=== PATIENT | female | born 1995 | race Caucasian/White ===

== ENCOUNTER 2017-03-14 19:04 | Emergency (ER) | payer OTHER ==
[2017-03-14] MEDS ORDERED: ACETAMINOPHEN TAB 500 MG TAB PO STA (19:41)
--- NOTE | 2017-03-14 19:53 | XR ---
EXAMINATION TYPE: XR chest 2V DATE OF EXAM: 03/14/2017 COMPARISON: 03/04/2012 HISTORY: Cough and fever TECHNIQUE: Frontal and lateral views of the chest are obtained. FINDINGS: Heart and mediastinum are normal. Lungs are clear. Diaphragm is normal. Bony thorax appear s normal. IMPRESSION: Normal chest. No change.
--- NOTE | 2017-03-14 20:05 | ED ---
General Adult HPI - General Chief complaint: Upper Respiratory Infection Stated complaint: FLU SYMPTOMS Time Seen by Provider: 03/14/17 19:30 Source: patient, family, RN notes reviewed Mode of arrival: ambulatory Limitations: no limitations - History of Present Illness Initial comments: 21-year-old female presents for cough cold fever chills. Patient has been sick for the past 2 days. She went to they diagnosed her with fluids without that aren't as well as for concern for UTI. She states that she still is not feeling better so she came in to be seen today. She is up and on the medications for more than 2 doses. There is been no nausea or vomiting. She states just feels very weak and tired. She states she took Motrin today but no Tylenol. Patient denies any recent shortness of breath, chest pain, back pain, abdominal pain, nausea vomiting, numbness or tingling, dysuria or hematuria, constipation or diarrhea, headaches or visual changes, or any other current symptoms. - Related Data Home Medications Medication Instructions Recorded Confirmed Dextroamphetamine/Amphetamine 20 mg PO BID 03/14/17 03/14/17 [Adderall] LORazepam [Ativan] 1 mg PO HS PRN 03/14/17 03/14/17 Oseltamivir [Tamiflu] 75 mg PO Q12HR 03/14/17 03/14/17 Allergies Allergy/AdvReac Type Severity Reaction Status Date / Time Sulfa (Sulfonamide Allergy Rash/Hives Verified 03/14/17 19:37 Antibiotics) Review of Systems ROS Statement: Those systems with pertinent positive or pertinent negative responses have been documented in the HPI. ROS Other: All systems not noted in ROS Statement are negative. Past Medical History Additional Past Medical History / Comment(s): UTI History of Any Multi-Drug Resistant Organisms: None Reported Past Surgical History: No Surgical Hx Reported Past Psychological History: Anxiety Smoking Status: Never smoker Past Alcohol Use History: None Reported Past Drug Use History: None Reported General Exam - General Exam Comments Initial Comments: General exam: Alert, active, comfortable in no apparent distress Head: Normocephalic Eyes: Normal reaction of pupils, equal size, normal range of extraocular motion Ears: normal external ear canals, pink tympanic membranes with normal cone of light Nose: clear with pink turbinates Throat: no erythema or exudates with normal sized tonsils Neck: no masses, no nuchal rigidity Chest: no chest wall deformity Lungs: equal air entry with no crackles or wheeze CVS: S1 and S2 normal with no audible mumurs, regular rhythm. Abdomen: no hepatosplenomegaly, normal bowel sounds, no guarding or rigidity Spine: no scoliosis or deformity Skin: no rashes Neurological: No focal deficits, tone is normal in all 4 extremities Limitations: no limitations Course Vital Signs 03/14/17 19:22 Temperature 101.7 F H Pulse Rate 108 H Respiratory 20 Rate Blood Pressure 124/73 O2 Sat by Pulse 97 Oximetry Medical Decision Making - Medical Decision Making 21-year-old female presents for cough and congestion.at this time patient chest x-ray was reviewed and lab results. She is positive for influenza. We discussed continuing the current regimen that she is on. We discussed return parameters and follow-up and all questions. The patient stated that she understood and all her questions have been answered. Patient will be discharged. - Lab Data Lab Results 03/14/17 Range/Units 20:00 Influenza Type A RNA Detected H (Not Detectd) Influenza Type B (PCR) Not Detected (Not Detectd) - Radiology Data Radiology results: report reviewed, image reviewed Disposition Clinical Impression: Influenza A Disposition: HOME SELF-CARE Condition: Stable Instructions: Influenza (ED) Additional Instructions: Please use medication as discussed. Please follow up with family doctor if symptoms have not improved over the next two days. Please return to the emergency room if your symptoms increase or worsen or for any other concerns. Referrals: Shorty Eden III, MD [STAFF PHYSICIAN] - 1-2 days Time of Disposition: 20:29
[2017-03-14 20:39] VITALS: BP 115/67; PULSE 64; RESP 18; TEMP 98.9
== END 2017-03-14 20:39 | disposition home or self-care (01) ==
LOC: EC 19:04
DX: J10.1 Influenza due to other identified influenza virus with other respiratory manifestations (principal); Z88.2 Allergy status to sulfonamides; Z79.899 Other long term (current) drug therapy
CPT/HCPCS: 71046; 87502; 99283

== ENCOUNTER 2017-09-30 20:30 | Emergency (ER) | payer OTHER ==
[2017-09-30 20:56] VITALS: RESP 20
[2017-09-30 21:28] LABS: HCT 38.6 % (34.0-46.0); HGB 13.3 gm/dL (11.4-16.0); MCH 31.2 pg (25.0-35.0); MCHC 34.3 g/dL (31.0-37.0); MCV 90.9 fL (80.0-100.0); Mean Platelet Volume 8.2; Platelet Count 148 k/uL (150-450); RBC 4.25 m/uL (3.80-5.40); RDW 12.4 % (11.5-15.5); WBC 13.5 k/uL (3.8-10.6)
[2017-09-30 21:39] LABS: ALT 29 U/L (9-52); AST 22 U/L (14-36); Albumin 3.9 g/dL (3.5-5.0); Alkaline Phosphatase 69 U/L (38-126); Anion Gap 12 mmol/L; Blood Urea Nitrogen 10 mg/dL (7-17); Calcium 8.7 mg/dL (8.4-10.2); Carbon Dioxide 23 mmol/L (22-30); Chloride 95 mmol/L (98-107); Glucose 105 mg/dL (74-99); Potassium 4.4 mmol/L (3.5-5.1); Sodium 130 mmol/L (137-145); Total Protein 6.7 g/dL (6.3-8.2)
[2017-09-30 21:50] LABS: Band Neutrophils % 10 %; Nucleated Red Blood Cells 0 /100 WBC (0-0)
[2017-09-30 21:51] LABS: Lymphocytes # (M) 0.81 k/uL (1.0-4.8); Monocytes # (M) 0.81 k/uL (0-1.0); Neutrophils % (M) 77 %; Plasma Cells # (M) 0.14 k/uL (0); Plasma Cells % 1 %; Total Cells Counted 100
[2017-09-30] MEDS ORDERED: CEFTRIAXONE IVP STA (23:06)
[2017-09-30 23:18] LABS: Appearance,Urine Clear (Clear); Bacteria,Urine Few /hpf; Bilirubin,Urine Negative (Negative); Blood,Urine Trace (Negative); Color,Urine Light Yellow; Glucose,Urine (UA) Negative (Negative); Ketones,Urine 2+ (Negative); Leukocyte Esterase,Urine Moderate (Negative); Mucus,Urine Rare /hpf; Nitrite,Urine Negative (Negative); PH, Urine 5.5 (5.0-8.0); Protein,Urine Trace (Negative); RBC,Urine 1 /hpf (0-5); Specific Gravity,Urine 1.005 (1.001-1.035); Squamous Epithelial Cell,Urine 1 /hpf (0-4); Urobilinogen,Urine <2.0 mg/dL (<2.0); WBC,Urine 17 /hpf (0-5)
--- NOTE | 2017-09-30 23:50 | XR ---
EXAMINATION TYPE: XR chest 2V DATE OF EXAM: 09/30/2017 COMPARISON: 03/14/2017 HISTORY: Chest pain TECHNIQUE: Frontal and lateral views of the chest are obtained. FINDINGS: Heart and mediastinum are normal. Lungs are clear. Diaphragm is normal. IMPRESSION: Normal chest. No change.
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
[2017-10-01] MEDS ORDERED: ACETAMINOPHEN TAB 500 MG TAB PO STA (01:01)
[2017-10-01 01:10] VITALS: BP 106/64; PULSE 99; TEMP 101.8
== END 2017-10-01 01:09 | disposition home or self-care (01) ==
LOC: EC 20:30
DX: N12 Tubulo-interstitial nephritis, not specified as acute or chronic (principal); N30.90 Cystitis, unspecified without hematuria; R51 Headache; F41.9 Anxiety disorder, unspecified; F32.9 Major depressive disorder, single episode, unspecified; Z79.899 Other long term (current) drug therapy; Z88.2 Allergy status to sulfonamides
CPT/HCPCS: 99283; 36415; 80053; 83605; 85025; 81001; 81025; 87040; 87086; 87077; 87186; 71046; J0696

== ENCOUNTER 2019-10-03 23:08 | Emergency (ER) | payer SELFPAY ==
--- NOTE | 2019-10-03 23:45 | XR ---
EXAMINATION TYPE: XR forearm LT DATE OF EXAM: 10/03/2019 COMPARISON: NONE HISTORY: Trauma. Hit hand on a tree. TECHNIQUE: 2 views FINDINGS: There is nondisplaced transverse fracture of the distal radius involving mainly the radial styloid process. There is no displacement. Distal ulna appears intact. The elbow joint appears anatom ic. IMPRESSION: Acute nondisplaced distal radius fracture.
--- NOTE | 2019-10-03 23:47 | XR ---
EXAMINATION TYPE: XR hand complete LT DATE OF EXAM: 10/03/2019 COMPARISON: NONE HISTORY: Trauma. Pain. TECHNIQUE: 3 views FINDINGS: There is nondisplaced transverse and longitudinal fracture of the distal radius. Fracture l ine extends to the radiocarpal joint. The carpal bones are intact. Metacarpals are intact. There is s oft tissue swelling on the dorsum of the hand and wrist. The fingers appear intact. IMPRESSION: Soft tissue swelling. Acute nondisplaced fracture distal radius with comminution.
--- NOTE | 2019-10-03 23:48 | XR ---
EXAMINATION TYPE: XR wrist complete LT DATE OF EXAM: 10/03/2019 COMPARISON: NONE HISTORY: Pain. Trauma. TECHNIQUE: 4 views FINDINGS: There is transverse and oblique fractures of the distal radius extending to the radiocarpal joint. The carpal bones are intact. Intercarpal joint spaces are normal. There is no dislocation. Me tacarpals are intact. Distal ulna appears normal. IMPRESSION: Acute comminuted intra-articular nondisplaced fracture distal radius.
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
[2019-10-04 00:22] VITALS: BP 110/78; PULSE 62; RESP 18; TEMP 98
== END 2019-10-04 00:25 | disposition home or self-care (01) ==
LOC: EC 23:08
DX: S52.572A Other intraarticular fracture of lower end of left radius, initial encounter for closed fracture (principal); F41.9 Anxiety disorder, unspecified; F32.9 Major depressive disorder, single episode, unspecified; Z88.2 Allergy status to sulfonamides; V47.5XXA Car driver injured in collision with fixed or stationary object in traffic accident, initial encounter; Y92.410 Unspecified street and highway as the place of occurrence of the external cause; Y93.89 Activity, other specified
CPT/HCPCS: 29105; 99283

== ENCOUNTER → 2022-01-03 | Outpatient (CLI) | payer BC ==
[2022-01-03 18:18] LABS: Basophils # (A) 0.04 X 10*3/uL (0.00-0.10); Basophils % (A) 0.4 %; Eosinophils # (A) 0.06 X 10*3/uL (0.04-0.35); Eosinophils % (A) 0.5 %; HCT 40.2 % (37.2-46.3); HGB 13.7 g/dL (12.0-15.0); Immature Grans, Automated 0.5 %; Lymphocytes # (A) 1.61 X 10*3/uL (0.90-5.00); Lymphocytes % (A) 14.7 %; MCH 31.9 pg (27.0-32.0); MCHC 34.1 g/dL (32.0-37.0); MCV 93.5 fL (80.0-97.0); Mean Platelet Volume 11.7 fL (9.5-12.2); Monocytes # (A) 0.77 X 10*3/uL (0.20-1.00); NRBC Per 100 WBC 0 /100 WBCS (0.0-0.0); Neutrophils # (A) 8.45 X 10*3/uL (1.80-7.70); Neutrophils % (A) 76.9 %; Platelet Count 251 X 10*3/uL (140-440); RDW 11.7 % (11.5-14.5); WBC 10.98 X 10*3/uL (4.50-10.00)
== END | disposition home or self-care (01) ==
LOC: LABPAT 12:31
PROVIDERS: ATTEND Obstetrics & Gynecology
DX: Z01.812 Encounter for preprocedural laboratory examination (principal); O02.1 Missed abortion
CPT/HCPCS: 36415; 85025

== ENCOUNTER → 2022-01-03 | Outpatient (CLI) | payer BC ==
--- NOTE | 2022-01-03 12:02 | US ---
EXAMINATION TYPE: Transabdominal DATE OF EXAM: 01/03/2022 11:29 AM COMPARISON: NONE CLINICAL HISTORY: O76 ABN OR ABSENT HEART TONE. EXAM PERFORMED: Transvaginal (TV) and Transabdominal (TA) EXAM MEASUREMENTS: GESTATIONAL AGE / DATING Dates by LMP: (10 weeks/6 days) EDC: 07/26/2022 Dates by Current Scan for: (9 weeks/2 days) EDC: 08/06/2022 MATERNAL ANATOMY Uterus: Subchorrionic hemorrhage visualized around entire gestational sac Right Ovary: 1.6 x 1.5 x 1.6 cm complex cystic mass, corpus luteum appearance. Left Ovary: Not visualized Post CDS / Adnexa: Free Fluid near Right ovary and posterior cul de sac. Presence of free fluid: Yes Presence of corpus luteal cyst: Yes Presence of subchorionic bleed: Yes GESTATION / SURVEY CRL: 2.6cm (9 weeks/3 days) MSD: 3.5 (9 weeks/0 days) Yolk Sac (normal less than 6mm): No Yolk sac visualized Heart Rate: No heart tone detected IUP: Demise Date of LMP: 10/19/2021 Office notified of results by technologist. IMPRESSION: 1. Clinical correlation for intrauterine demise. No heart tones identified at this time. 2. Subchorionic hemorrhage surrounds the gestational sac.
== END | disposition home or self-care (01) ==
LOC: RADUSWWP 10:52
PROVIDERS: ATTEND Obstetrics & Gynecology
DX: O76 Abnormality in fetal heart rate and rhythm complicating labor and delivery (principal); O20.8 Other hemorrhage in early pregnancy; Z3A.09 9 weeks gestation of pregnancy
CPT/HCPCS: 76801; 76817

== ENCOUNTER 2022-01-04 06:18 | Day surgery (SDC) | payer BC ==
[~2022-01-04 06:18] MED LIST: DEXAMETHASONE SOD PHOSPHATE 4 MG/ML 1 ML VIAL IV ONE; LACTATED RINGERS 1,000 ML IV SCH; MIDAZOLAM 2 MG/2 ML VIAL IV PRN; ONDANSETRON 4 MG/2 ML VIAL IVP ONE; Pre Op ABX Message 1 EACH MISC MISCELLANE ONE; SCOPOLAMINE 1 MG/72 HR PATCH TRANSDERM ONE
[2022-01-04 06:43] VITALS: RESP 16
[2022-01-04] MEDS ORDERED: HYDROmorphone 0.5 MG/0.5 ML SYRINGE IVP PRN (07:00)
[2022-01-04] MEDS ORDERED: MIDAZOLAM 2 MG/2 ML VIAL IVP ONE ×2 (07:03→07:10)
[2022-01-04] MEDS ORDERED: PHENYLEPHRINE-0.9% NACL SYG 1,000 MCG/10 ML SYRINGE ONE (07:28)
[2022-01-04] MEDS ORDERED: fentaNYL (PF) 50 MCG/ML 2 ML AMP ONE (07:28)
[2022-01-04] MEDS ORDERED: LIDOCAINE 2% INJ 20 MG/ML (2 ML VIAL) ONE (07:28)
[2022-01-04] MEDS ORDERED: PROPOFOL 10 MG/ML 20 ML VIAL IV ONE (07:28)
[2022-01-04] MEDS ORDERED: MIDAZOLAM 2 MG/2 ML VIAL ONE (07:28)
[2022-01-04] MEDS ORDERED: KETOROLAC 15 MG/ML 1 ML VIAL ONE (07:28)
--- NOTE | 2022-01-04 08:15 | P.OP ---
Date of Procedure: 01/04/22 Preoperative Diagnosis: Missed Postoperative Diagnosis: Missed Procedure(s) Performed: Suction dilatation and curettage Anesthesia: STEPHANE Surgeon: Sahara Arora Hand Mica Plate Layer #1: Loy Juarez Estimated Blood Loss (ml): 100 IV fluids (ml): 500 Urine output (ml): 50 Pathology: none sent Condition: stable Disposition: same day Indications for Procedure: 9 week, day 2 fetus without heart tones seen on ultrasound consistent with demise Operative Findings: On bimanual exam, the patient has approximately 9-week anteverted, mobile uterus with the cervix that is closed. There was a mdoerate amount of tissue obtained on the procedure. The patient is Rh positive. Description of Procedure: PROCEDURE: The patient was taken to the operating room where a general anesthetic was administered. She was then positioned in the dorsal lithotomy position and prepped and draped in the normal sterile fashion. Once the anesthetic was found to be adequate, a bimanual exam was performed under anesthetic. Next, a weighted speculum was placed in the vagina. The anterior lip of cervix was grasped with the tenaculum and due to the patient already being dilated approximately 2 cm, no cervical dilation was needed. An 8mm curved suction curette was connected to the suction and was placed in the cervix and a suction curettage was performed. Two passes were made with the suction curettage. Next, a sharp curettage was performed obtaining a small amount of tissue and this was followed by third suction curettage. After the procedure, the tenaculum was removed. The cervix was hemostatic. The weighted speculum was removed. After the procedure, a second bimanual exam was performed and the patient's uterus had significantly decreased in size.The patient was taken from the operating room in stable condition after she was cleaned. She will be discharged home today with doxycycline and will follow up in the office in 2 weeks.
[2022-01-04 08:20] VITALS: TEMP 97.3
[2022-01-04 09:30] VITALS: BP 92/50; PULSE 62
== END 2022-01-04 09:43 | disposition home or self-care (01) ==
LOC: OR 06:18
PROVIDERS: ATTEND Obstetrics & Gynecology
DX: O02.1 Missed abortion (principal); F90.9 Attention-deficit hyperactivity disorder, unspecified type; F41.8 Other specified anxiety disorders; J45.909 Unspecified asthma, uncomplicated; N39.0 Urinary tract infection, site not specified; N10 Acute pyelonephritis; Z88.2 Allergy status to sulfonamides; Z79.899 Other long term (current) drug therapy; Z98.890 Other specified postprocedural states
CPT/HCPCS: 86900; 86901; 88305; 86850; 59820; J2250; J1100; J2405; J3010; J1885; J2370; J2704; J2001

== ENCOUNTER 2022-08-10 18:37 | Outpatient (CLI) | payer BC ==
[2022-08-10] MEDS ORDERED: DEXTROSE 5%-LACTATED RINGERS 1,000 ML IV ONE (19:20)
[2022-08-10 19:37] LABS: Appearance,Urine Clear (Clear); Bilirubin,Urine Negative (Negative); Blood,Urine Negative (Negative); Color,Urine Yellow; Glucose,Urine (UA) Negative (Negative); Ketones,Urine 2+ (Negative); Leukocyte Esterase,Urine Negative (Negative); Nitrite,Urine Negative (Negative); PH, Urine 6.5 (5.0-8.0); Protein,Urine Negative (Negative); Specific Gravity,Urine 1.015 (1.001-1.035); Urobilinogen,Urine <2.0 mg/dL (<2.0)
[2022-08-10 20:01] LABS: HGB 13.1 gm/dL (11.4-16.0); MCH 32.2 pg (25.0-35.0); MCHC 34.4 g/dL (31.0-37.0); MCV 93.8 fL (80.0-100.0); Mean Platelet Volume 9.3; Platelet Count 180 k/uL (150-450); RBC 4.05 m/uL (3.80-5.40); RDW 12.7 % (11.5-15.5); WBC 9.9 k/uL (3.8-10.6)
[2022-08-10 20:45] LABS: Band Neutrophils % 7 %; Neutrophils % (M) 90 %; Nucleated Red Blood Cells 0 /100 WBC (0-0); Total Cells Counted 100
[2022-08-10 20:46] LABS: RBC Morphology Normal
[2022-08-10 21:14] VITALS: BP 122/70; PULSE 100; RESP 16; TEMP 98.3
--- NOTE | 2022-08-16 10:10 | P.MSEPDOC ---
Presenting Problems - Arrival Data Date of Arrival on Unit: 08/10/22 Time of Arrival on Unit: 18:37 Mode of Transport: Ambulatory - Complaint OB-Reason for Admission/Chief Complaint: Acute Nausea/Vomiting Comment: Patient presents to triage with acute N/V starting around [address] Cyr called with report on maternal and status, stable vital signs, no vomiting since arrival in triage. Orders to collect a CBC, UA, and infuse a 1L bag of D5LR. Call back with results from lab and patient status after fluids infused. Medical History - Information : 2 Para: 0 Term: 0 : 0 Abortions: Spontaneous or Elective: 1 Number of Living Children: 0 - Gestational Age Gestational Age by SHAWN (wks/days): 20 Weeks and 1 Days Review of Systems - Review of Systems Constitutional: No problems Breast: No problems ENT: No problems Cardiovascular: No problems Respiratory: No problems Gastrointestinal: No problems Genitourinary: No problems Musculoskeletal: No problems Neurological: No problems Skin: No problems Vital Signs - Temperature Temperature: 98.3 F Temperature Source: Oral - Pulse Pulse Oximetery Pulse Rate: 100 Pulse Assessment Method: Pulse Oximetry - Respirations Respiratory Rate: 16 Oxygen Delivery Method: Room Air O2 Sat by Pulse Oximetry: 99 - Blood Pressure Right Arm Blood Pressure: 122/70 Blood Pressure Mean: 87 Blood Pressure Source: Automatic Cuff Medical Screen Scoring - Cervical Exam Membranes: Intact - Uterine Contractions Intensity: Absent - Assessment - Baby A Baseline FHR: 150 Physician Notification - Physician Notified Physician Notified Date: 08/10/22 Physician Notified Time: 19:15 Physician: Barbara Cyr Order Received: Yes - Notification Comment Comment: Orders to collect CBC, UA and give IV hydration. Call with lab results. Maternal Triage Index - Maternal Triage Index Presenting for scheduled procedure w/no complaint: No - Stat/Priority 1 Stat Priority 1: No - Urgent/Priority 2 Urgent Priority 2: No - Prompt/Priority 3 Prompt Priority 3: No - Non-Urgent/Priority 4 Non-Urgent Priority 4: Yes Criteria Met for Priority 4: Patient presents to triage with acute N/V starting around [address] Cyr called with report on maternal and status, stable vital signs, no vomiting since arrival in triage. Orders to collect a CBC, UA, and infuse a 1L bag of D5LR. Call back with results from lab and patient status after fluids infused. Disposition - Disposition OB Disposition: Physician follow up in office, Discharge to home Discharge Date: 08/10/22 Discharge Time: 20:33 I agree with the RN Medical Screening Exam: Yes Case reviewed; plan agreed upon as documented in EMR&OBIX.: Yes Diagnosis: RELATED CONDITIONS, UNSPECIFIED, SECOND TRIMESTER
== END 2022-08-10 20:39 | disposition home or self-care (01) ==
LOC: FBPOP 18:37
PROVIDERS: ATTEND Obstetrics & Gynecology
DX: O21.9 Vomiting of pregnancy, unspecified (principal); Z3A.20 20 weeks gestation of pregnancy; Z88.2 Allergy status to sulfonamides
CPT/HCPCS: 36415; 81003; 85025; 96360; 96361; 99213

== ENCOUNTER 2022-12-11 15:24 | Inpatient (IN) | payer BC ==
[2022-12-11] MEDS ORDERED: CARBOPROST TROMETHAMINE 250 MCG/ML 1 ML AMP IM PRN (16:03)
[2022-12-11] MEDS ORDERED: TRANEXAMIC 1,000 MG/100ML-NACL 1,000 MG in EMPTY BAG 1 BAG IV PRN (16:03)
[2022-12-11] MEDS ORDERED: PENICILLIN G POTASSIUM 5,000,000 UNIT in DEXTROSE 5% IN WATER 100 ML IVPB STA ×2 (16:03)
[2022-12-11] MEDS ORDERED: METHYLERGONOVINE 0.2 MG/ML 1 ML AMP IM PRN (16:03)
[2022-12-11] MEDS ORDERED: miSOPROStoL 200 MCG TAB PO PRN (16:03)
[2022-12-11] MEDS ORDERED: TERBUTALINE 1 MG/ML VIAL SQ PRN (16:03)
[2022-12-11] MEDS ORDERED: OXYTOCIN 10 UNIT/ML 1 ML VIAL IM PRN (16:03)
[2022-12-11] MEDS ORDERED: LIDOCAINE 0.5% (PF) 5 MG/ML (50 ML SDV) SQ PRN (16:03)
[2022-12-11] MEDS ORDERED: NALBUPHINE 10 MG/ML (10 ML MDV) IV PRN (16:05)
[2022-12-11] MEDS ORDERED: OXYTOCIN 30 UNITS/500 ML NS 30 UNIT in SALINE 1 500ML.BAG IV SCH (16:15)
[2022-12-11 16:20] LABS: HCT 40.9 % (34.0-46.0); HGB 14.4 gm/dL (11.4-16.0); MCH 33.2 pg (25.0-35.0); MCHC 35.2 g/dL (31.0-37.0); MCV 94.5 fL (80.0-100.0); Mean Platelet Volume 9.7; Platelet Count 212 k/uL (150-450); RBC 4.33 m/uL (3.80-5.40); RDW 12.4 % (11.5-15.5); WBC 12.8 k/uL (3.8-10.6)
[2022-12-11] MEDS: LACTATED RINGERS 1,000 ML IV SCH (16:29)
[2022-12-11 17:01] LABS: Eosinophils # (M) 0.13 k/uL (0-0.7); Large Platelets Present; Lymphocytes # (M) 1.41 k/uL (1.0-4.8); Monocytes # (M) 0.64 k/uL (0-1.0); Myelocytes # (M) 0.26 k/uL (0); Myelocytes % 2 %; Neutrophils # (M) 10.62 k/uL (1.3-7.7); Neutrophils % (M) 83 %; Nucleated Red Blood Cells 0 /100 WBC (0-0); Polychromasia Present; Total Cells Counted 200
[2022-12-11] MEDS: PENICILLIN G POTASSIUM 2,500,000 UNIT in DEXTROSE 5% IN WATER 100 ML IVPB SCH ×2 (20:21)
[2022-12-11] MEDS ORDERED: ROPIVACAINE 5 MG/ML 30 ML VIAL ONE (20:35)
[2022-12-11] MEDS ORDERED: SODIUM CHLORIDE 0.9% 250 ML BAG ONE (20:35)
[2022-12-11] MEDS ORDERED: fentaNYL (PF) 50 MCG/ML 5 ML AMP ONE (20:35)
[2022-12-12] MEDS: PENICILLIN G POTASSIUM 2,500,000 UNIT in DEXTROSE 5% IN WATER 100 ML IVPB SCH ×10 (09:01→18:01)
[2022-12-12] MEDS: LACTATED RINGERS 1,000 ML IV SCH ×2 (09:09→18:01)
[2022-12-12] MEDS ORDERED: KETOROLAC 15 MG/ML 1 ML VIAL IVP STA (17:10)
--- NOTE | 2022-12-12 17:24 | P.HPOB ---
History of Present Illness H&P Date: 12/11/22 Chief Complaint: Leakage of fluid Ms. Castaneda is a 27 year old at 37 weeks and 5 days with EDC of 12/27/2022 (by LMP consistent with 7 week US) who presents with leakage f fluid at 1500 on 12/11. She is feeling intermittent contractions. The has been complicated by a macrosomic fetus with an estimated weight in the 97%ile at 36 weeks. OB history: 1 first trimester SAB Maternal work-up: blood type B positive, antibody screen negative, rubella immune, VDRL non-reactive, HBsAg negative, HIV negative, HCV Ab negative, gonorrhea negative, chlamydia negative. GBS positive. s/p TDap on 10/08/2022. Past Medical History Past Medical History: No Reported History Additional Past Medical History / Comment(s): hx UTI, missed , after vaginal u/s . no heart beat History of Any Multi-Drug Resistant Organisms: None Reported Past Surgical History: No Surgical Hx Reported Additional Past Surgical History / Comment(s): wisdom teeth removed, D&C Past Anesthesia/Blood Transfusion Reactions: No Reported Reaction Additional Past Anesthesia/Blood Transfusion Reaction / Comment(s): no blood transfusions Past Psychological History: ADD/ADHD, Anxiety, Depression Smoking Status: Never smoker Past Alcohol Use History: None Reported, Occasional Past Drug Use History: None Reported - Past Family History Mother Family Medical History: Hypertension Father Family Medical History: AFIB, Congestive Heart Failure (CHF) Medications and Allergies Home Medications Medication Instructions Recorded Confirmed Type Aspirin [Adult Low Dose Aspirin EC] 81 mg PO DAILY 08/10/22 12/11/22 History Vit No.179/Iron/Folic 1 each PO DAILY 08/10/22 12/11/22 History [ Tablet] Allergies Allergy/AdvReac Type Severity Reaction Status Date / Time Sulfa (Sulfonamide Allergy Unknown Verified 12/11/22 15:53 Antibiotics) Childhood Exam Vital Signs Temp Pulse Resp BP Pulse Ox 12/12/22 17:10 97.3 F L 101 H 16 118/61 96 Intake and Output 12/12/22 12/12/22 12/12/22 06:59 14:59 22:59 Output Total 600 Balance -600 Output: Urine 100 Estimated Blood Loss 500 This physical exam is performed. This is a healthy-appearing in no apparent distress. Breathing is non-labored. Abdomen is gravid and non-tender. Cervical exam is 1-1/2, thick, and high. Extremities are non-tender and non- edematous. heart tones are category 1 and the tocometer is graphing intermittent contractions. Results Result Diagrams: 12/11/22 16:07 Assessment and Plan Assessment: 27 year old at 37 weeks and 5 days with SROM Plan: 1. SROM. Admit, begin oxytocin augmentation of labor. 2. GBS positive. PCN ppx.
[2022-12-12] MEDS ORDERED: diphenhydrAMINE 25 MG CAP PO PRN (17:29)
[2022-12-12] MEDS ORDERED: diphenhydrAMINE 50 MG/ML 1 ML VIAL IVP PRN ×2 (17:29)
[2022-12-12] MEDS ORDERED: HYDROCORTISONE 2.5% RECTAL CREAM 30 GM TUBE RECTAL PRN (17:29)
[2022-12-12] MEDS ORDERED: ZOLPIDEM 5 MG TAB PO PRN (17:29)
[2022-12-12] MEDS ORDERED: SIMETHICONE 80 MG CHEWABLE PO PRN (17:29)
[2022-12-12] MEDS ORDERED: LANOLIN CREAM 5 GM TUBE TOPICAL PRN (17:29)
[2022-12-12] MEDS ORDERED: diphenhydrAMINE 50 MG CAP PO PRN (17:29)
[2022-12-12] MEDS ORDERED: BENZOCAINE/MENTHOL SPRAY 1 GM/SPRAY AEROSOL TOPICAL PRN (17:29)
--- NOTE | 2022-12-12 17:29 | P.PROBDLV ---
Vaginal Delivery Note - . Vaginal Delivery Note: DATE OF SERVICE: 12/12/2022 PROCEDURE: Normal Vaginal Delivery ATTENDING: Dr. Sahara Arora MD ESTIMATED BLOOD LOSS: 500 mL FINDINGS: VMI, Apgars 8/9. Weight 8 pounds and 15 ounces (4080 grams) PROCEDURE: Ms. Castaneda is a 27 year old at 37 weeks and 5 days presenting to labor and delivery for SROM on 12/11 at 1500. The has been complicated by suspected macrosomia. For further details, please review the admitting H&P. The patient was started on penicillin for GBS prophylaxis and labor was augmented with IV pitocin. The patient received epidural anesthesia per her request. The heart tones were Category I to II throughout the fi rst stage. The patient was completely dilated at 1415. The patient pushed effectively and heart tones remained Category I to II. A viable male was delivered at 1651 in a compound presentation with the right hand alongside the vertex. The was placed on the maternal abdomen and bulb suctioned. Cord was clamped and cut after a 30-second delay. The infant was noted to be spontaneously crying. The infant was handed off to the pediatric team. Placenta was delivered whole with gentle cord traction at 1658. Oxytocin was started to facilitate uterine tone. Bleeding was noted to be brisk, so IM Methergine was administered. Uterine fundus was found to be firm and below the umbilicus upon fundal massage. Thorough examination of the cervix, vagina, periurethral area, and perineum revealed a second degree laceration which was infiltrated with lidocaine and repaired with 2-0 Vicryl in the usual fashion. The patient is stable and allowed to begin the bonding process. Pat ient stable .
[2022-12-12] MEDS: IBUPROFEN 600 MG TAB PO PRN (20:07)
[2022-12-12] MEDS: SENNOSIDES-DOCUSATE SODIUM 1 EACH TAB PO SCH (20:07)
[2022-12-13] MEDS: ACETAMINOPHEN TAB 325 MG TAB PO PRN ×2 (01:49→12:26)
[2022-12-13 05:08] LABS: HCT 32.7 % (34.0-46.0); HGB 11.9 gm/dL (11.4-16.0); MCH 34.5 pg (25.0-35.0); MCHC 36.4 g/dL (31.0-37.0); MCV 94.7 fL (80.0-100.0); Mean Platelet Volume 9.7; Platelet Count 194 k/uL (150-450); RBC 3.46 m/uL (3.80-5.40); RDW 12.4 % (11.5-15.5)
[2022-12-13 06:58] LABS: Band Neutrophils % 9 %; Lymphocytes # (M) 1.87 k/uL (1.0-4.8); Monocytes # (M) 1.87 k/uL (0-1.0); Neutrophils % (M) 69 %; Nucleated Red Blood Cells 0 /100 WBC (0-0); Total Cells Counted 100
[2022-12-13 06:59] LABS: RBC Morphology Normal
[2022-12-13] MEDS: IBUPROFEN 600 MG TAB PO PRN ×2 (07:57→19:54)
[2022-12-13] MEDS: SENNOSIDES-DOCUSATE SODIUM 1 EACH TAB PO SCH ×2 (07:58→20:00)
--- NOTE | 2022-12-13 08:56 | P.PNOBGVD ---
Subjective - Subjective Principal diagnosis: s/p vaginal delivery complicated by hemorrhage Interval history: The patient is doing well this morning and had no acute events overnight. She has no complaints this morning. She reports moderate lochia, passing flatus, has had a bowel movement, voiding without difficulty, ambulating, and eating/drinking without nausea or vomiting. She is and working on his latch. She denies chest pain, shortness of breathing, fevers, or chills overnight. She denies pain or swelling in the legs. Patient reports: Reports appetite normal, Reports voiding normally, Reports pain well controlled, Reports ambulating normally [place]: doing well Objective - Latest Vital Signs Latest vital signs: Vital Signs Temp Pulse Resp BP Pulse Ox 12/13/22 08:00 98.2 F 77 16 94/59 12/13/22 03:15 98.4 F 97 16 111/65 96 12/13/22 00:00 97.7 F 90 16 114/67 99 12/12/22 19:10 71 16 104/67 97 12/12/22 18:40 74 16 104/67 98 12/12/22 18:10 74 16 117/75 97 12/12/22 17:55 73 16 115/75 97 12/12/22 17:40 90 16 118/71 98 12/12/22 17:25 101 H 16 100/56 97 12/12/22 17:10 97.3 F L 101 H 16 118/61 96 Intake and Output 12/12/22 12/13/22 12/13/22 22:59 06:59 14:59 Intake Total 480 Output Total 822 Balance -822 480 Intake: Oral 480 Output: Urine 100 Estimated Blood Loss 500 Output, Quantitative 222 Blood Loss Other: # Voids 1 - Exam Extremities: Present: normal Abdomen: Present: normal appearance, soft Uterus: Present: normal, firm - Labs Labs: Abnormal Lab Results - Last 24 Hours (Table) 12/13/22 Range/Units 04:24 WBC 17.0 H (3.8-10.6) k/uL RBC 3.46 L (3.80-5.40) m/uL Hct 32.7 L (34.0-46.0) % Neutrophils # (Manual) 13.20 H (1.3-7.7) k/uL Monocytes # (Manual) 1.87 H (0-1.0) k/uL Assessment and Plan Assessment: 27 year old now PPD#1 s/p vaginal delivery complicated by hemorrhage Plan: 1. . Patient meeting all milestones appropriately. 2. Acute blood loss anemia. VSS, hgb this AM 11. 3. Male . Will perform circumcision today, parents consented. Dispo: Anticipate discharge home tomorrow. Patient would like to work on getting a better latch prior to discharge.
[2022-12-14] MEDS: ACETAMINOPHEN TAB 325 MG TAB PO PRN (00:09)
[2022-12-14 01:59] VITALS: RESP 16
[2022-12-14] MEDS: IBUPROFEN 600 MG TAB PO PRN (04:39)
[2022-12-14 08:05] VITALS: BP 120/78; PULSE 81; TEMP 97.5
[2022-12-14] MEDS: SENNOSIDES-DOCUSATE SODIUM 1 EACH TAB PO SCH (09:07)
--- NOTE | 2022-12-14 10:32 | P.DS ---
Providers Date of admission: 12/11/22 16:00 Expected date of discharge: 12/14/22 Attending physician: Sahara Arora MD Primary care physician: Stated None - Discharge Diagnosis(es) (1) Normal vaginal delivery Current Visit: Yes Status: Acute Hospital Course: The patient is a 27-year-old 2 para 0010 admitted at 37-5/7 weeks by good dating parameters. She presents with spontaneous rupture of membranes and in early labor. Her was uncomplicated aside from suspected macrosomia with the fetus found at the 97th percentile at 36 weeks' gestation. On labor and delivery, all signs reassuring with a category 1 heart rate tracing. She had antibiotic prophylaxis started for group B strep prophylaxis and Pitocin augmentation started. She later had an epidural catheter placed for analgesia. She ultimately progressed to complete and pushed to a normal spontaneous vaginal delivery of a viable 8 lbs. 15 oz. baby boy with Apgars of 8 at 1 minute and 9 at 5 minutes. Her course was unremarkable with vital signs remaining stable and her temperature was afebrile throughout. She was deemed stable for discharge on day #2 and was discharged home to follow-up in the office in 6 weeks' time routinely. Discharge instructions included calling for any significantly increased bleeding or foul-smelling lochia, significantly increased fever abdominal pain, perineal complaints, breast complaints, or anything else that concerned her. She was additionally instructed to have nothing in the vagina for at least 6 weeks time to include intercourse. She understood her instructions and agrees to follow up as noted above. Discharge medications included continued vitamins as she has opted to breast-feed. She was otherwise to use [id number] analgesic pain medications. Maternal blood type is B+ and rubella status is immune. Procedures: #1. Antibiotic prophylaxis #2. Pitocin augmentation #3. Epidural analgesia #4. Normal spontaneous vaginal delivery #5. Repair of perineal laceration Patient Condition at Discharge: Stable Plan - Discharge Summary New Discharge Prescriptions: No Action Vit No.179/Iron/Folic [ Tablet] 1 each PO DAILY Aspirin [Adult Low Dose Aspirin EC] 81 mg PO DAILY Discharge Medication List Aspirin [Adult Low Dose Aspirin EC] 81 mg PO DAILY 08/10/22 [History] Vit No.179/Iron/Folic [ Tablet] 1 each PO DAILY 06/17/23 [History] Follow up Appointment(s)/Referral(s): Sahara rAora MD [STAFF PHYSICIAN] - 6 Weeks Discharge Disposition: HOME SELF-CARE
== END 2022-12-14 11:50 | disposition home or self-care (01) | DRG 806 ==
LOC: FBPOP 15:24 → 4FBP 16:00
PROVIDERS: ADMIT Obstetrics & Gynecology; ATTEND Obstetrics & Gynecology
DX: O36.63X0 Maternal care for excessive fetal growth, third trimester, not applicable or unspecified (principal); O72.1 Other immediate postpartum hemorrhage; Z37.0 Single live birth; O70.1 Second degree perineal laceration during delivery; O32.6XX0 Maternal care for compound presentation, not applicable or unspecified; O99.824 Streptococcus B carrier state complicating childbirth; Z3A.37 37 weeks gestation of pregnancy; Z28.310 Unvaccinated for COVID-19; Z79.82 Long term (current) use of aspirin; Z79.899 Other long term (current) drug therapy; Z87.440 Personal history of urinary (tract) infections; Z88.2 Allergy status to sulfonamides
CPT/HCPCS: 59025; 84112; 85025; 86850; 86900; 86901; 99213